=== PATIENT | female | born 1995 | race Native Hawaiian/Other Pacific Islander ===

== ENCOUNTER 2016-08-29 13:57 | Emergency (ER) | payer OTHER ==
[~2016-08-29] VITALS: Ht 160 cm; Wt 54.4 kg
[2016-08-29 14:00] VITALS: TEMP 98.6
[2016-08-29 14:47] LABS: PLATELET COUNT 489 K/uL (152-353)
[2016-08-29 14:58] LABS: POTASSIUM 4.4 mmol/L (3.6-5.2); SODIUM 136 mmol/L (136-145)
[2016-08-29 15:40] VITALS: BP 106/67
== END 2016-08-29 15:40 | disposition home or self-care (01) ==
LOC: ED 13:57
DX: N83.202 Unspecified ovarian cyst, left side (principal); N83.201 Unspecified ovarian cyst, right side; R10.84 Generalized abdominal pain
CPT/HCPCS: 36415; 80053; 80307; 81000; 85027; 99283; G0479; J1885; J2405

== ENCOUNTER 2016-12-10 14:41 | Emergency (ER) | payer OTHER ==
[~2016-12-10] VITALS: Ht 160 cm; Wt 59.0 kg
[2016-12-10 15:13] VITALS: BP 105/72; TEMP 99.6
[2016-12-10 18:20] VITALS: BP 103/68
== END 2016-12-10 18:25 | disposition home or self-care (01) ==
LOC: ED 14:41 → ICU 20:00
DX: R10.2 Pelvic and perineal pain (principal); M54.30 Sciatica, unspecified side; K21.9 Gastro-esophageal reflux disease without esophagitis
CPT/HCPCS: 74022; 81000; 81025; 99283; J1885; J2550

== ENCOUNTER 2017-04-12 15:03 | Emergency (ER) | payer OTHER ==
[~2017-04-12] VITALS: Ht 160 cm; Wt 61.2 kg
[2017-04-12 15:46] LABS: PLATELET COUNT 375 K/uL (152-353)
[2017-04-12 16:03] LABS: POTASSIUM 3.4 mmol/L (3.6-5.2); SODIUM 138 mmol/L (136-145)
[2017-04-12 21:00] VITALS: BP 115/68; TEMP 98.2
== END 2017-04-12 21:02 | disposition home or self-care (01) ==
LOC: ED 15:03
DX: N73.9 Female pelvic inflammatory disease, unspecified (principal)
CPT/HCPCS: 36415; 80053; 81025; 82150; 83690; 85027; 87490; 87590; 96365; 96372; 96374; 96375; 99284; J0696; J1170; J1885; J2405; Q9963

== ENCOUNTER 2017-07-22 16:49 | Emergency (ER) | payer OTHER ==
[~2017-07-22] VITALS: Ht 160 cm; Wt 63.5 kg
[2017-07-22 16:55] VITALS: BP 131/99; TEMP 98.1
== END 2017-07-22 17:25 | disposition home or self-care (01) ==
LOC: ED 16:49
DX: R10.84 Generalized abdominal pain (principal); N93.9 Abnormal uterine and vaginal bleeding, unspecified
CPT/HCPCS: 99281

== ENCOUNTER 2019-02-10 16:08 | Emergency (ER) | payer OTHER ==
[~2019-02-10] VITALS: Ht 160 cm; Wt 47.6 kg
[2019-02-10 17:08] LABS: PLATELET COUNT 345 K/uL (152-353)
[2019-02-10 17:13] LABS: POTASSIUM 3.8 mmol/L (3.6-5.2)
[2019-02-10 21:45] VITALS: BP 114/74; TEMP 97.7
== END 2019-02-10 21:45 | disposition other institution (70) ==
LOC: ED 16:08
PROVIDERS: Emergency Medicine
DX: R45.851 Suicidal ideations (principal); F19.239 Other psychoactive substance dependence with withdrawal, unspecified; T40.1X1A Poisoning by heroin, accidental (unintentional), initial encounter; R00.1 Bradycardia, unspecified; Y92.89 Other specified places as the place of occurrence of the external cause
CPT/HCPCS: 80053; 80307; 80320; 80329; 81000; 81025; 83735; 84484; 85027; 87077; 87086; 87088; 87185; 87186; 93005; 96360; 96375; 99285; J2405; J2765; J3490